=== PATIENT | female | born 1935 | race African-American/Black ===

== ENCOUNTER 2024-09-04 19:09 | Emergency (ER) | payer OTHER ==
[~2024-09-04] VITALS: Ht 170.2 cm; Wt 60.0 kg
[2024-09-04 19:11] VITALS: O2SAT 100
[2024-09-04] MEDS: SODIUM CHLORIDE 0.9% 500 ML IV ONE (20:50)
[2024-09-04 21:24] LABS: BASOPHILS % 0.5 % (0.0-2.0); EOSINOPHILS % 0.5 % (0.0-5.0); HEMATOCRIT. 38.1 % (36.0-48.0); HEMOGLOBIN. 12.5 g/dL (12.0-16.0); LYMPHOCYTES % 17.4 % (20.0-50.0); MEAN CORPUSCULAR HEMOGLOBIN 31.2 pg (28.0-32.0); MEAN CORPUSCULAR HGB CONC 32.8 g/dL (31.0-37.0); MEAN PLATELET VOLUME 7.3 fl (7.4-10.4); NEUTROPHILS % 70.6 % (40.0-76.0); PLATELET 265 x1000/uL (130-400); RED BLOOD CELL COUNT 4.01 mill/uL (4.2-5.4); RED CELL DISTRIBUTION WIDTH 14.1 % (11.6-14.6); WHITE BLOOD COUNT 6.5 x1000/uL (4.5-11.0)
[2024-09-04 21:29] LABS: CHLORIDE 107 mEq/L (98-107); POTASSIUM 3.7 mEq/L (3.5-5.1); SODIUM 143 mEq/L (136-145)
[2024-09-04 21:30] LABS: CALCIUM 10.9 mg/dL (8.7-10.4); CARBON DIOXIDE 30 mEq/L (21-32)
[2024-09-04 21:33] LABS: PROTHROMBIN TIME 10.9 sec (9.6-11.0)
[2024-09-04 21:35] LABS: CREATININE 1.1 mg/dL (0.6-1.0); GLUCOSE 134 mg/dL (70-105); UREA NITROGEN BLOOD 15 mg/dL (9-23)
[2024-09-04 21:39] LABS: TROPONIN I HIGH SENSITIVITY < 4 ng/L (3.0-34)
[2024-09-04 23:13] LABS: TROPONIN I HIGH SENSITIVITY < 4 ng/L (3.0-34)
[2024-09-04 23:27] LABS: CLARITY URINE CLEAR (CLEAR); COLOR URINE YELLOW (YELLOW); GLUCOSE URINE NEGATIVE (NEGATIVE); KETONES URINE NEGATIVE (NEGATIVE); LEUKOCYTE ESTERASE URINE TRACE (NEGATIVE); NITRITE URINE NEGATIVE (NEGATIVE); OCCULT BLOOD URINE NEGATIVE (NEGATIVE); PROTEIN URINE NEGATIVE (NEGATIVE); SPECIFIC GRAVITY URINE 1.009 (1.005-1.030); UROBILINOGEN URINE 0.2 E.U./dL (0.2-1.0)
[2024-09-05 00:42] LABS: RBC URINE 0-2 /hpf (0-2); SQUAMOUS EPITHELIAL CELL URINE FEW /lpf (RARE/1+); WBC URINE 0-2 /hpf (0-2)
[2024-09-05 00:43] LABS: BACTERIA URINE NONE SEEN
[2024-09-05] MEDS: TRAZODONE HCL 50MG TABLET PO NR (01:31)
[2024-09-05 01:58] VITALS: TEMP 37.00296
[2024-09-05] MEDS ORDERED: GUAIFENESIN 200MG/10ML SUGAR FREE UDC PO PRN (06:15)
[2024-09-05] MEDS ORDERED: ONDANSETRON HCL 4MG/2ML INJ IV PRN (06:15)
[2024-09-05] MEDS ORDERED: IPRATROPIUM/ALBUTEROL 0.5-3(2.5)MG/3ML NEB NEB PRN (06:15)
[2024-09-05] MEDS ORDERED: MAGNESIUM/ALUMINUM HYDROXIDE/SIMETHICONE 30ML UDC PO PRN (06:15)
[2024-09-05] MEDS ORDERED: KETOROLAC 15MG/ML VIAL IV PRN (06:15)
[2024-09-05] MEDS ORDERED: ZOLPIDEM TARTRATE 5MG TABLET PO PRN (06:15)
[2024-09-05] MEDS ORDERED: NITROGLYCERIN 0.4MG TABLET SL SL PRN (06:15)
[2024-09-05] MEDS ORDERED: DOCUSATE SODIUM 100MG CAPSULE PO PRN (06:15)
[2024-09-05] MEDS ORDERED: CLONIDINE 0.1MG TABLET PO PRN (06:15)
[2024-09-05] MEDS ORDERED: ACETAMINOPHEN 325MG TABLET PO PRN ×2 (06:15)
[2024-09-05] MEDS ORDERED: LACTATED RINGERS 1,000 ML IV SCH (06:15)
[2024-09-05 06:21] VITALS: BP 155/63; PULSE 73; RESP 15; O2SAT 100
[2024-09-05] MEDS ORDERED: ASPIRIN 81MG EC TABLET PO SCH (09:00)
[2024-09-05] MEDS ORDERED: FAMOTIDINE 20MG TABLET PO SCH (09:00)
[2024-09-05] MEDS ORDERED: ENOXAPARIN 30MG/0.3ML SYR SUBCUT SCH (09:00)
== END 2024-09-05 06:53 | disposition short-term general hospital (02) ==
LOC: ER 19:09 → EDBEDREQ 20:25 → EDBEDREQTM 23:32 → EDBEDREQ 23:32 → ER 09-05 06:53
DX: R55 Syncope and collapse (principal); E78.00 Pure hypercholesterolemia, unspecified; I95.9 Hypotension, unspecified
CPT/HCPCS: 99285; 70450; 71045; 80048; 81003; 83880; 85025; 85610; 84484; 36415; 93005; J7040